=== PATIENT | male | born 1930 | race Native Hawaiian/Other Pacific Islander ===

== ENCOUNTER 2020-03-04 15:08 | Emergency (ER) | payer OTHER ==
[~2020-03-04] VITALS: Ht 182.9 cm; Wt 86.6 kg
[2020-03-04 15:08] VITALS: BP 155/76; TEMP 98.5
[2020-03-04 15:34] LABS: PLATELET COUNT 113 K/uL (142-355)
[2020-03-04 15:42] LABS: POTASSIUM 3.6 mmol/L (3.6-5.2)
[2020-03-04] MEDS ORDERED: ASPIR-8181 MG PO (17:33)
[2020-03-04] MEDS ORDERED: FERRETTS325 MG PO (17:34)
[2020-03-04] MEDS ORDERED: CLARITIN10 M1 PO (17:34)
[2020-03-04] MEDS ORDERED: AVAPRO300 MG PO (17:35)
[2020-03-04] MEDS ORDERED: FINA5TAB2 PO (17:35)
[2020-03-04] MEDS ORDERED: FURO20TA67 PO (17:36)
[2020-03-04] MEDS ORDERED: LANSOPRAZOLE DR30 MG PO (17:36)
[2020-03-04] MEDS ORDERED: MEMANTINE HYDRO14 MG PO (17:37)
[2020-03-04] MEDS ORDERED: OXCARBAZEPIN150 MG PO (17:37)
[2020-03-04] MEDS ORDERED: LORA0.5T17 PO (17:38)
[2020-03-04] MEDS ORDERED: TRAZ50TA36 PO (17:38)
[2020-03-04] MEDS ORDERED: VITAMIN D35000 UNIT PO (17:38)
[2020-03-04] MEDS ORDERED: TAMS0.4C PO (17:39)
[2020-03-04] MEDS ORDERED: FLONASE AL50 MCG/ACT INH (17:40)
[2020-03-04] MEDS ORDERED: DICLOFENAC SODIUM1 % TD (17:41)
[2020-03-04] MEDS ORDERED: MELATONIN5 M2 PO (17:41)
[2020-03-04] MEDS ORDERED: LIPITOR10 MG PO (17:41)
[2020-03-04] MEDS ORDERED: MIRTAZAPINE7.5 MG PO (17:42)
[2020-03-04] MEDS ORDERED: MONTELUKAST SOD10 MG PO (17:43)
[2020-03-04] MEDS ORDERED: TRIPLE ANTIBIOT TOP (17:44)
== END 2020-03-04 17:03 | disposition other institution (70) ==
LOC: ED 15:08
PROVIDERS: Family Medicine
DX: F03.91 Unspecified dementia, unspecified severity, with behavioral disturbance (principal); Z11.59 Encounter for screening for other viral diseases; Z04.6 Encounter for general psychiatric examination, requested by authority
CPT/HCPCS: 36415; 80053; 85027; 87635; 93005; 99283; U0003

== ENCOUNTER 2020-03-31 20:55 | Emergency (ER) | payer OTHER ==
[~2020-03-31] VITALS: Ht 182.9 cm; Wt 77.1 kg
[~2020-03-31 20:55] MED LIST: ASPIR-8181 MG PO; AVAPRO300 MG PO; CLARITIN10 M1 PO; DICLOFENAC SODIUM1 % TD; ESCI10TA PO; FERRETTS325 MG PO; FINA5TAB2 PO; FLONASE AL50 MCG/ACT INH; FOLI1TAB26 PO; FURO20TA67 PO; LANSOPRAZOLE DR30 MG PO; LIPITOR10 MG PO; LORA0.5T17 PO; MELATONIN5 M2 PO; MEMA10TA2 PO; MEMANTINE HYDRO14 MG PO; MIRTAZAPINE7.5 MG PO; MONT10TA PO; MONTELUKAST SOD10 MG PO; OLANZAPINE5 MG PO; OXCARBAZEPIN150 MG PO; OXCARBAZEPIN300 MG PO; TAMS0.4C PO; TRAZ50TA36 PO; TRIPLE ANTIBIOT TOP; VITAMIN D35000 UNIT PO
[2020-03-31 21:36] LABS: PLATELET COUNT 126 K/uL (142-355)
[2020-03-31 21:44] LABS: POTASSIUM 3.2 mmol/L (3.6-5.2)
[2020-03-31 22:15] VITALS: BP 129/69; TEMP 97.3
[2020-03-31] MEDS ORDERED: ASPIRIN81 M1 PO (23:12)
[2020-03-31] MEDS ORDERED: FERROUS SULF325 M1 PO (23:13)
[2020-03-31] MEDS ORDERED: FINASTERIDE5 MG PO (23:14)
[2020-03-31] MEDS ORDERED: KP FOLIC ACID1 MG PO (23:14)
[2020-03-31] MEDS ORDERED: AVAPRO300 MG PO (23:15)
[2020-03-31] MEDS ORDERED: FUROSEMIDE20 MG PO (23:19)
[2020-03-31] MEDS ORDERED: ALLERGY RELF10 M1 PO (23:21)
[2020-03-31] MEDS ORDERED: LANSOPRAZOLE DR30 MG PO (23:23)
[2020-03-31] MEDS ORDERED: VITAMIN D35000 UNI6 PO (23:26)
[2020-03-31] MEDS ORDERED: FLONASE AL50 MCG/ACT NAS (23:29)
[2020-03-31] MEDS ORDERED: MEMANTINE HYDRO10 MG PO (23:30)
[2020-03-31] MEDS ORDERED: TAMS0.4C PO (23:31)
[2020-03-31] MEDS ORDERED: DICLOFENAC SODIUM1 % TD (23:34)
[2020-03-31] MEDS ORDERED: LIPITOR10 MG PO (23:35)
[2020-03-31] MEDS ORDERED: ESCITALOPRAM10 MG PO (23:37)
[2020-03-31] MEDS ORDERED: MELATONIN5 M4 PO (23:38)
[2020-03-31] MEDS ORDERED: TRILEPTAL300 MG PO (23:42)
[2020-03-31] MEDS ORDERED: MONTELUKAST SOD10 MG PO (23:43)
[2020-03-31] MEDS ORDERED: OLANZAPINE5 M1 PO (23:44)
[2020-03-31] MEDS ORDERED: ALPR0.2566 PO (23:46)
== END 2020-03-31 22:15 | disposition other institution (70) ==
LOC: ED 20:55
PROVIDERS: Emergency Medicine Emergency Medical Services
DX: F32.89 Other specified depressive episodes (principal); R45.1 Restlessness and agitation; F03.91 Unspecified dementia, unspecified severity, with behavioral disturbance; Z11.59 Encounter for screening for other viral diseases; Z04.6 Encounter for general psychiatric examination, requested by authority
CPT/HCPCS: 36415; 80053; 85027; 87635; 93005; 99283; U0003

== ENCOUNTER 2020-04-02 23:15 | Emergency (ER) | payer OTHER ==
[~2020-04-02] VITALS: Ht 182.9 cm; Wt 80.3 kg
[~2020-04-02 23:15] MED LIST changes: +ALLERGY RELF10 M1 PO; +ALPR0.2566 PO; +ASPIRIN81 M1 PO; +ESCITALOPRAM10 MG PO; +FERROUS SULF325 M1 PO; +FINASTERIDE5 MG PO; +FLONASE AL50 MCG/ACT NAS; +FUROSEMIDE20 MG PO; +KP FOLIC ACID1 MG PO; +MELATONIN5 M4 PO; +MEMANTINE HYDRO10 MG PO; +OLANZAPINE5 M1 PO; +TRILEPTAL300 MG PO; +VITAMIN D35000 UNI6 PO
[2020-04-03 00:32] VITALS: BP 118/67; TEMP 98.4
== END 2020-04-03 00:32 | disposition other institution (70) ==
LOC: ED 23:15
PROC: 0HQ1XZZ Repair Face Skin, External Approach (ICD-10-PCS; principal; 2020-04-02)
DX: S01.111A Laceration without foreign body of right eyelid and periocular area, initial encounter (principal); R51.9 Headache, unspecified; W01.198A Fall on same level from slipping, tripping and stumbling with subsequent striking against other object, initial encounter; Y92.89 Other specified places as the place of occurrence of the external cause
CPT/HCPCS: 99283; J2001; J7040